=== PATIENT | female | born 1965 | race Caucasian/White ===

== ENCOUNTER 2016-10-19 09:38 | Outpatient (CLI) | payer OTHER | END 2016-10-19 09:40 | LOC: LABRHC 09:38 | PROVIDERS: ATTEND Family Medicine | DX: Z01.419 Encounter for gynecological examination (general) (routine) without abnormal findings (principal); E11.9 Type 2 diabetes mellitus without complications | CPT/HCPCS: 88148; G0143 ==

== ENCOUNTER 2016-10-29 07:11 | Outpatient (CLI) | payer OTHER ==
[2016-10-29 07:52] LABS: eGFR (African) > 60; eGFR (Non-African) > 60
== END 2016-10-29 07:12 ==
LOC: LAB 07:11
PROVIDERS: ATTEND Family Medicine
DX: E78.2 Mixed hyperlipidemia (principal)
CPT/HCPCS: 36415; 80053; 80061

== ENCOUNTER 2016-11-27 13:00 | Outpatient (CLI) | payer OTHER | END 2016-11-27 13:01 | LOC: LAB 13:00 | PROVIDERS: ATTEND Emergency Medicine | DX: J02.9 Acute pharyngitis, unspecified (principal) | CPT/HCPCS: 87070; 87880 ==